=== PATIENT | male | born 1965 ===

== ENCOUNTER 2018-02-06 13:23 | Emergency (ER) | payer SELFPAY ==
[2018-02-06 14:17] VITALS: TEMP 98
[2018-02-06] MEDS ORDERED: Sodium Chloride 0.9% 1,000 ML IV STA (14:32)
--- NOTE | 2018-02-06 15:19 | CT ---
Date of service: 02/06/2018 PROCEDURE: CT HEAD WITHOUT CONTRAST. HISTORY: ams COMPARISON: None available. TECHNIQUE: Axial computed tomography images were obtained through the head/brain without intravenous contrast. Radiation dose: Total exam DLP = 841.32 mGy-cm. This CT exam was performed using one or more of the following dose reduction techniques: Automated exposure control, adjustment of the mA and/or kV according to patient size, and/or use of iterative reconstruction technique. FINDINGS: HEMORRHAGE: No intracranial hemorrhage. BRAIN: No mass effect or edema. No atrophy or chronic microvascular ischemic changes. VENTRICLES: Unremarkable. No hydrocephalus. CALVARIUM: Unremarkable. PARANASAL SINUSES: Unremarkable as visualized. No significant inflammatory changes. MASTOID AIR CELLS: Unremarkable as visualized. No inflammatory changes. OTHER FINDINGS: None. IMPRESSION: Normal CT of the Head. No intracranial mass, hemorrhage or evidence of acute infarct.
--- NOTE | 2018-02-06 15:22 | ED PDOC ---
Arrival/HPI - General Chief Complaint: Alcohol Ingestion Time Seen by Provider: 02/06/18 14:21 Historian: EMS - History of Present Illness Narrative History of Present Illness (Text): 02/06/18 15:20 Patient is an estimated 54 yo male who presents to the Emergency Department via [facility] with history of "he was found laying outside drunk". History is obtained from [facility] personnel. There is no family or friends present. No further history available as patient appears intoxicated and does not answer questions. There is no reported trauma or injury. Time/Duration: Prior to Arrival Past Medical History - Infectious Disease Hx of Infectious Diseases: None - Psychiatric Hx Substance Use: No Family/Social History Family/Social History: Unknown Family HX Smoking Status: Unknown If Ever Smoked Hx Alcohol Use: Yes Frequency of alcohol use: Daily Hx Substance Use: No Allergies/Home Meds Allergies/Adverse Reactions: Allergies Unobtainable Allergy (Verified 02/06/18 13:36) Home Medications: Home Meds Medication Instructions Recorded Confirmed Unobtainable 02/06/18 02/06/18 Review of Systems - Review of Systems Systems not reviewed;Unavailable: Intoxicated Respiratory: absent: SOB Gastrointestinal: absent: Vomiting Neurological: absent: Headache Psychiatric: absent: Suicidal Ideation Physical Exam - Physical Exam Physical Exam Limitations: Intoxication Vital Signs Reviewed: Yes Vital Signs Temp Pulse Resp BP Pulse Ox 02/06/18 14:15 98.0 F 78 17 136/83 95 Temperature: Afebrile Pulse: Regular Appearance: Positive for: Non-Toxic, Unkept Mental Status: Positive for: Lethargic Finger Stick Blood Glucose: 87 - Systems Exam Head: Present: Atraumatic Pupils: Present: PERRL Conjunctiva: Present: Injected. No: Icteric Mouth: Present: Dry Pharnyx: No: ERYTHEMA Nose (Internal): Present: Normal Inspection Neck: Present: Normal Range of Motion. No: Meningeal Signs Respiratory/Chest: Present: Clear to Auscultation. No: Respiratory Distress Cardiovascular: Present: Regular Rate and Rhythm Abdomen: No: Tenderness, Distention Rectal: No: Gross Blood Back: No: CVA Tenderness Upper Extremity: No: Cyanosis Lower Extremity: No: Edema Neurological: Present: Other (slurred speech, will open eyes to sternal rub, groan, move all his extremities) Skin: Present: Warm Psychiatric: No: Normal Concentration Medical Decision Making ED Course and Treatment: 02/06/18 17:43 Patient's history obtained from EMS personnel. Patient on initial exam will open eyes to sternal rub, smells of alcohol. No signs of acute trauma initially noted. No bony deformities. He was monitored and observed. With serial exams, he will now open eyes spontaneously, sit up, move all extremities with good strength. He remains intoxicated with slurred speech and is unable/unwilling to provide name and other demographic information. Have continued monitoring and serial exams. Patient is easily directable and will engage in conversation, shake hands. At this time, not tremulous or tachycardic. ETOH level elevated. Hypernatremia noted I suspect secondary to alcohol ingestion. Will continue serial exams, monitoring given elevated etoh level and severe intoxication. 02/06/18 18:47 Re-exam. Patient alert. Denies any pain or discomfort. Still with slurred speech and refuses to given name and provide history. Will endorsed to oncoming physician for continued monitoring of symptoms, serial neuro exams, serial exams. 02/06/18 18:48 UA pending. 02/06/18 18:49 hander in RN has been present for repeat history and physical. - Lab Interpretations Lab Results: 02/06/18 15:45 02/06/18 15:45 Lab Results 02/06/18 15:45: Alcohol, Quantitative 460 H* 02/06/18 15:45: Salicylates < 1 L, Acetaminophen < 10.0 L 02/06/18 15:45: Sodium 154 H, Potassium 3.9, Chloride 113 H, Carbon Dioxide 22, Anion Gap 23 H, BUN 8, Creatinine 0.6 L, Est GFR ( Amer) > 60, Est GFR ( Non-Af Amer) > 60, Random Glucose 103, Calcium 8.0 L, Magnesium 2.3 H, Total Bilirubin 0.3, AST 45, ALT 46, Alkaline Phosphatase 78, Lactate Dehydrogenase 511, Total Creatine Kinase 157, Troponin I < 0.01, Total Protein 7.8, Albumin 4.4, Globulin 3.4, Albumin/Globulin Ratio 1.3 02/06/18 15:45: PT 12.0, INR 1.05, APTT 28.7 02/06/18 15:45: WBC 5.9, RBC 4.83, Hgb 15.3, Hct 44.1, MCV 91.3, MCH 31.7, MCHC 34.7, RDW 13.6, Plt Count 188, MPV 10.9, Gran % 34.1 L, Lymph % (Auto) 56.1 H, [place] % (Auto) 3.8, Eos % (Auto) 5.3 H, Baso % (Auto) 0.7, Gran # 2.00, Lymph # ( Auto) 3.3, [place] # (Auto) 0.2, Eos # (Auto) 0.3, Baso # (Auto) 0.04 - RAD Interpretation Radiology Orders: 02/06/18 14:30 CHEST ONE VIEW [RAD] Stat 02/06/18 14:31 HEAD W/O CONTRAST [CT] Stat - EKG Interpretation EKG Interpretation (Text): EKG at 14:05 normal sinus rhythm rate of [address] elevations Interpreted by ED Physician: Yes Type: 12 lead EKG - Medication Orders Current Medication Orders: Discontinued Medications Sodium Chloride (Sodium Chloride 0.9%) 1,000 mls @ 1,000 mls/hr IV .Q1H STA Stop: 02/06/18 15:31 Last Admin: 02/06/18 15:29 Dose: 1,000 mls/hr eMAR Start Stop Document 02/06/18 15:29 [facility] (Rec: 02/06/18 15:30 [facility] [id number]) Intravenous Solution Start Date 02/06/18 Start Time 15:30 End Date 02/06/18 End time 16:30 Total Infusion Time 60 Disposition/Present on Arrival - Present on Arrival Any Indicators Present on Arrival: No History of DVT/PE: No History of Uncontrolled Diabetes: No Urinary Catheter: No History of Decub. Ulcer: No History Surgical Site Infection Following: None - Disposition Have Diagnosis and Disposition been Completed?: Yes Diagnosis: Alcohol intoxication Disposition: HOME/ ROUTINE Disposition Time: 19:00 Patient Plan: Observation Condition: FAIR Forms: [employer] (Guinean)
[2018-02-06 16:09] LABS: BASO # 0.04 K/mm3 (0.0-2.0); BASO % 0.7 % (0.0-3.0); EOS # 0.3 (0.0-0.7); EOS % 5.3 % (1.5-5.0); GRAN % 34.1 % (50.0-68.0); HEMOGLOBIN 15.3 g/dL (14.0-18.0); LYMPH # 3.3 (1.2-3.4); LYMPH % 56.1 % (22.0-35.0); MEAN CELL VOLUME 91.3 fl (80.0-105.0); MEAN CORPUSCULAR HEMOGLOBIN 31.7 pg (25.0-35.0); MEAN CORPUSCULAR HGB CONC 34.7 g/dl (31.0-37.0); MEAN PLATELET VOLUME 10.9 fl (7.0-11.0); MONO # 0.2 (0.1-0.6); MONO % 3.8 % (1.0-6.0); RBC 4.83 10^6/uL (3.5-6.1); RED CELL DISTRIBUTION WIDTH 13.6 % (11.5-14.5); WHITE BLOOD COUNT 5.9 10^3/ul (4.5-11.0)
[2018-02-06 16:19] LABS: ALB/GLOB RATIO 1.3 (1.1-1.8); ALBUMIN 4.4 g/dL (3.0-4.8); ALT/SGPT 46 U/L (7-56); AST/SGOT 45 U/L (17-59); BLOOD UREA NITROGEN 8 mg/dL (7-21); GFR NON-AFRICAN AMERICAN > 60; INR 1.05; PARTIAL THROMBOPLASTIN TIME 28.7 Seconds (25.1-36.5)
[2018-02-06 16:20] LABS: ACETAMINOPHEN < 10.0 ug/ml (10.0-20.0); SALICYLATE < 1 mg/dL (2.0-20.0)
--- NOTE | 2018-02-06 16:29 | RAD ---
Date of service: 02/06/2018 PROCEDURE: CHEST RADIOGRAPH, 1 VIEW HISTORY: ams COMPARISON: None available. FINDINGS: LUNGS: Clear. PLEURA: No pneumothorax or pleural fluid seen. CARDIOVASCULAR: Mild cardiomegaly OSSEOUS STRUCTURES: No significant abnormalities. VISUALIZED UPPER ABDOMEN: Normal. OTHER FINDINGS: None. IMPRESSION: No active disease.
[2018-02-06 16:31] LABS: TROPONIN I < 0.01 ng/mL
--- NOTE | 2018-02-06 19:25 | ED PDOC ---
Physical Exam Vital Signs Reviewed: Yes Vital Signs Temp Pulse Resp BP Pulse Ox 02/06/18 14:15 98.0 F 78 17 136/83 95 Temperature: Afebrile Blood Pressure: Normal Pulse: Regular Respiratory Rate: Normal Appearance: Positive for: Well-Appearing, Non-Toxic, Comfortable Mental Status: Positive for: Alert and Oriented X 3 Finger Stick Blood Glucose: 87 - Systems Exam Head: Present: Atraumatic, Normocephalic Pupils: Present: PERRL Mouth: Present: Moist Mucous Membranes Medical Decision Making ED Course and Treatment: 02/06/18 19:[address] Goyal pending reassessment & clinical sobriety. 02/06/18 20:26 Patient ambulating without assistance, not noted to be be tremulous with steady gait. Requesting staff to call . 02/06/18 21:07 CT Head reviewed by radiologist, shows: Normal CT of the head. No intracranial mass, hemorrhage or evidence of acute infarct. Chest X-ray reviewed by radiologist, shows: No active disease. - Lab Interpretations Lab Results: 02/06/18 15:45 02/06/18 15:45 Lab Results 02/06/18 15:45: Alcohol, Quantitative 460 H* 02/06/18 15:45: Salicylates < 1 L, Acetaminophen < 10.0 L 02/06/18 15:45: Sodium 154 H, Potassium 3.9, Chloride 113 H, Carbon Dioxide 22, Anion Gap 23 H, BUN 8, Creatinine 0.6 L, Est GFR ( Amer) > 60, Est GFR ( Non-Af Amer) > 60, Random Glucose 103, Calcium 8.0 L, Magnesium 2.3 H, Total Bilirubin 0.3, AST 45, ALT 46, Alkaline Phosphatase 78, Lactate Dehydrogenase 511, Total Creatine Kinase 157, Troponin I < 0.01, Total Protein 7.8, Albumin 4.4, Globulin 3.4, Albumin/Globulin Ratio 1.3 02/06/18 15:45: PT 12.0, INR 1.05, APTT 28.7 02/06/18 15:45: WBC 5.9, RBC 4.83, Hgb 15.3, Hct 44.1, MCV 91.3, MCH 31.7, MCHC 34.7, RDW 13.6, Plt Count 188, MPV 10.9, Gran % 34.1 L, Lymph % (Auto) 56.1 H, [place] % (Auto) 3.8, Eos % (Auto) 5.3 H, Baso % (Auto) 0.7, Gran # 2.00, Lymph # ( Auto) 3.3, [place] # (Auto) 0.2, Eos # (Auto) 0.3, Baso # (Auto) 0.04 - RAD Interpretation Radiology Orders: 02/06/18 14:30 CHEST ONE VIEW [RAD] Stat 02/06/18 14:31 HEAD W/O CONTRAST [CT] Stat - Medication Orders Current Medication Orders: Discontinued Medications Sodium Chloride (Sodium Chloride 0.9%) 1,000 mls @ 1,000 mls/hr IV .Q1H STA Stop: 02/06/18 15:31 Last Admin: 02/06/18 15:29 Dose: 1,000 mls/hr eMAR Start Stop Document 02/06/18 15:29 [facility] (Rec: 02/06/18 15:30 [facility] [id number]) Intravenous Solution Start Date 02/06/18 Start Time 15:30 End Date 02/06/18 End time 16:30 Total Infusion Time 60 Disposition/Present on Arrival - Present on Arrival Any Indicators Present on Arrival: No History of DVT/PE: No History of Uncontrolled Diabetes: No Urinary Catheter: No History of Decub. Ulcer: No History Surgical Site Infection Following: None - Disposition Diagnosis: Alcohol intoxication Disposition: HOME/ ROUTINE Disposition Time: 22:19 Patient Plan: Discharge Patient Problems: Current Active Problems Problem Status Onset Alcohol intoxication Acute Condition: FAIR Discharge Instructions (ExitCare): Alcohol Abuse and Alcoholism (DC) Print Language: ROMANSH Referrals: PCP,NO [Primary Care Provider] - Follow up with primary Catherine Bass MD [Medical Doctor] - Follow up with primary [facility] [place]] - Follow up with primary Forms: [employer] (Martiniquais)
--- NOTE | 2018-02-06 21:23 | CARD ---
APPROVED REPORT Date of service: 02/06/2018 EKG Measurement Heart [id number] <Conclusion> Normal sinus rhythm Normal ECG
[2018-02-06 22:33] VITALS: BP 132/76; PULSE 86; RESP 18; O2SAT 97
== END 2018-02-06 22:25 | disposition home or self-care (01) ==
LOC: MERGE 13:23 → ED 13:23
DX: F10.129 Alcohol abuse with intoxication, unspecified (principal)
CPT/HCPCS: 70450; 71045; 80053; 82550; 83615; 83735; 84484; 85025; 85610; 85730; 93005; 96360; 99284; G0480; J7030